=== PATIENT | male | born 1940 | race Caucasian/White ===

== ENCOUNTER 2020-07-26 14:11 | Emergency (ER) | payer MEDICARE, OTHER, SELFPAY ==
[2020-07-26] VITALS (9 sets, daily range): BP systolic 143–193; BP diastolic 87–110; PULSE 62–86; RESP 12–19; TEMP 35.9–36.8; O2SAT 96–99
--- NOTE | ~2020-07-26 | CT_ITS ---
EXAMINATION: CT brain wo con DATE: 07/26/2020 14:15 INDICATION: Slurred speech TECHNIQUE: Computed tomography (CT) of the head was performed without intravenous contrast. Sagittal and coronal reconstructions were performed. The mA was adjusted according to patient size. Iterative reconstruction technique was employed. The dose-length product was 605.33 mGy-cm. 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 No acute intracranial hemorrhage, acute infarction or abnormal extra axial fl uid collection. There is mild scattered white matter hypoattenuation consistent with chronic small ve ssel ischemic disease. Ventricles are normal and symmetric. No mass/mass effect. Changes of bilatera l intraocular lens replacement. The orbits, paranasal sinuses and mastoid air cells are normal. IMPRESSION: 1. No acute intracranial process. 2. 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 3. Mild scattered white matter hypoattenuation consistent with chronic small vessel ischemic disease. Reviewed, dictated and finalized at location A. IMPRESSION: 1. No acute intracranial process. 2. 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 3. Mild scattered white matter hypoattenuation consistent with chronic small ve ssel ischemic disease.
--- NOTE | ~2020-07-26 | XR_ITS ---
EXAMINATION: XR chest 1V portable INDICATION: Slurred speech TECHNIQUE: Portable AP chest at 1457 hours COMPARISON: None available FINDINGS: The lungs are free of acute opacities. There is no pleural effusion or pneumothorax. The ca rdiomediastinal silhouette is normal. There appears to be an old defect in the posterior right fifth rib. 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 IMPRESSION: 1. No acute cardiopulmonary abnormality. Reviewed, dictated and finalized at location A.
--- NOTE | 2020-07-26 14:27 | ED.NEUROSD ---
HPI - Neuro Symptoms/Deficit General Chief Complaint: Neuro Symptoms/Deficit Stated Complaint: cva Time Seen by Provider: 07/26/20 14:12 History of Present Illness HPI Narrative: Patient is a 79-year-old male who presents ER with CVA-like symptoms. Onset at 1315. Patient was attempting to get his something to drink. Reports he began to feel very dizzy, had double vision, and he had numbness of his left upper and lower extremity. He had facial droop according to family and EMS as well as slurred speech. No paralysis of the arm or leg. Patient takes aspirin daily. No previous history of CVA per patient. Related Data Allergies Allergy/AdvReac Type Severity Reaction Status Date / Time No Known Allergies Allergy Verified 07/26/20 17:10 Review of Systems Review of Systems: All systems reviewed & are unremarkable except as noted in HPI and below Constitutional: Constitutional: Denies chills, Denies fever(s) and Denies weakness Eyes: Eyes: Reports change in vision ENT: Denies nasal congestion and Denies sore throat Cardiovascular: Cardiovascular: Denies chest pain, Denies rapid heart rate and Denies radiating jaw, neck or arm pain Respiratory: Respiratory: Denies cough and Denies dyspnea Gastrointestinal: Gastrointestinal: Denies abdominal pain, Denies nausea and Denies vomiting Neurologic: Reports dizziness, Denies syncope, Denies headache(s), Denies focal weakness and Reports numbness Comments: Dysarthria Exam Narrative: Exam Narrative: GENERAL: Well-appearing, well-nourished, and in no acute distress. HEAD: Normocephalic, atraumatic. EYES: PERRL and EOMI. CHEST: Clear to auscultation. No respiratory distress. HEART: Regular rate and rhythm. Normal peripheral pulses. ABDOMEN: Soft, nontender, nondistended. EXTREMITIES: Normal range of motion. No edema. SKIN: Warm, dry, no rash. NEURO: No upper or lower extremity drift. Cranial nerves II through XII intact with the exception of mild slurred speech. No facial droop. Mild ataxia with attempts to ambulate. Normal emay-sm-oakc testing and gmuyjw-dj-nosa testing. See NIH stroke scale. Alert and oriented x3. PSYCH: Normal mood and affect. Course Reevaluation(s) Reevaluation #1: Spoke with Dr. Feng with the stroke team at [facility] who does not recommend TPA due to NIHSS of 1 and does not feel patient has LVO. Recommends further stroke work up at this facility including MRI, HgA1C, lipid panel, cardiac echo, and CTA of the head/neck. Continue Aspirin. Date: 07/26/20 Time: 15:28 Reevaluation #2: Patient now starting to have increased slurred speech. Reevaluation shows he is now developing right upper extremity drift and right lower extremity drift. No word searching. No facial droop. Dr. Simpson recommends transfer due to fluctuating neuro symptoms. Will recontact [facility]. Date: 07/26/20 Time: 16:51 Reevaluation #3: Discussed with Dr. Stock. [facility]commends [facility]. No TPA as NIHSS still low. Date: 07/26/20 Time: 17:02 Additional Reevaluation(s): Spoke with Dr. Mix accepted to the ED. Vital Signs Vital signs: Vital Signs Temperature 96.6 F L 07/26/20 14:13 Pulse Rate 78 07/26/20 14:13 Respiratory Rate 15 07/26/20 14:13 Blood Pressure 193/106 H 07/26/20 14:13 Pulse Oximetry 98 07/26/20 14:13 Temperature 98.1 F 07/26/20 18:01 Pulse Rate 72 07/26/20 18:01 Respiratory Rate 19 07/26/20 18:01 Blood Pressure 163/93 H 07/26/20 18:01 Pulse Oximetry 97 07/26/20 18:01 MDM - Neuro Symptoms/Deficit Lab Data Result diagrams: 07/26/20 14:40 07/26/20 14:40 Labs: Lab Results 07/26/20 07/26/20 07/26/20 Range/Units 14:20 14:40 14:40 WBC 6.2 (4.5-10.0) K/mm3 RBC 5.42 (4.6-6.20) M/mm3 Hgb 16.5 (14.0-18.0) g/dL Hct 47.5 (42.0-52.0) % MCV 87.6 (80-100) fl MCH 30.4 (26-34) pg MCHC 34.7 (32-36) g/dl RDW 12.7 (11.5-14.5) % Plt Count 193 (150-375)
--- NOTE | 2020-07-26 14:38 | ECG_ITS ---
Measurements Intervals [place] Rate: 80 P: 61 VA: 192 QRS: 69 QRSD: 97 T: 63 QT: 399 QTc: 463 Interpretive Statements SINUS RHYTHM VOLTAGE CRITERIA FOR LVH BASELINE ARTIFACT- II, V2-V6 BORDERLINE ECG Electronically Signed On 07-26-2020 17:48:37 CDT by Joseph Clay D.O.
[2020-07-26 14:45] LABS: Basophils Absolute Auto 0.1 K/mm3 (0.0-0.1); Eosinophils Absolute Auto 0.1 K/mm3 (0-0.3); Eosinophils Percent Auto 1.6 % (0-4.4); Hematocrit 47.5 % (42.0-52.0); Hemoglobin 16.5 g/dL (14.0-18.0); Immature Granulocyte Absolute 0.02 K/mm3 (0.00-0.031); Immature Granulocyte Percent A 0.3 % (0-0.5); Lymphocytes Absolute Auto 2.13 K/mm3 (0.9-3.2); Lymphocytes Percent Auto 34.4 % (18.3-44.2); Mean Corpuscular HGB Conc 34.7 g/dl (32-36); Mean Corpuscular Hemoglobin 30.4 pg (26-34); Mean Corpuscular Volume 87.6 fl (80-100); Mean Platelet Volume 9.5 fl (7.4-10.4); Monocytes Absolute Auto 0.5 K/mm3 (0.1-0.6); Monocytes Percent Auto 8.7 % (2.6-8.5); Neutrophils Absolute Auto 3.4 K/mm3 (1.3-6.7); Platelet Count Result 193 k/mm3 (150-375); Red Blood Count 5.42 M/mm3 (4.6-6.20); Red Cell Distribution Width 12.7 % (11.5-14.5); White Blood Count 6.2 K/mm3 (4.5-10.0)
[2020-07-26 14:55] LABS: Prothrombin Time 13.8 Seconds (11.1-14.7)
[2020-07-26 14:56] LABS: Partial Thromboplastin Time 22.2 SECONDS (22.3-36.8)
[2020-07-26 16:33] LABS: Alanine Aminotransferase 38 U/L (4-50); Albumin Level 4.1 g/dL (3.5-5.1); Alkaline Phosphatase 69 U/L (38-126); Anion Gap 6 mmol/L (8-16); Aspartate Amino Transferase 42 U/L (17-59); Bilirubin,Total 0.9 mg/dL (0.2-1.3); Blood Urea Nitrogen 20 mg/dL (9-20); Calcium 9.1 mg/dL (8.4-10.2); Carbon Dioxide 26 mmol/L (22-30); Chloride 106 mmol/L (98-107); Estimated CRCL calculation 45 ml/min; Estimated Glomerular Filt Rate 53; Glucose 113 mg/dL (75-110); Potassium 3.6 mmol/L (3.4-5.0); Sodium 138 mmol/L (137-145)
[2020-07-26 16:44] LABS: Troponin I < 0.012 ng/mL (0.000-0.034)
[2020-07-26 16:59] LABS: Cholesterol 200 mg/dL (0-200); HDL Direct 33 mg/dL; Triglycerides 337 mg/dL (<150)
[2020-07-26 17:10] LABS: LDL Cholesterol Direct 116 mg/dL
--- NOTE | 2020-07-26 17:25 | PC.NURSE ---
[facility] Accepted Transfer to [facility] ETA 1900 Trip#[id number] [facility] No ALS [facility] accepted transfter ETA 30min
--- NOTE | 2020-07-26 17:25 | PC.NURSE ---
Report called to Jacqueline at [facility] ED. PCS and face sheet sent to [facility] for transfer of the patient.
[2020-07-26 18:09] LABS: Hemoglobin A1C 5.3 % (<5.7)
== END 2020-07-26 18:01 | disposition short-term general hospital (02) ==
PROVIDERS: Emergency Provider Emergency Medicine
DX: I63.9 Cerebral infarction, unspecified (principal); R29.704 NIHSS score 4; Z79.82 Long term (current) use of aspirin
CPT/HCPCS: 36415; 70450; 71045; 80053; 80061; 83036; 84484; 85025; 85610; 85730; 93005; 99285